=== PATIENT | female | born 1935 | race Caucasian/White ===

== ENCOUNTER 2017-01-02 21:34 | Emergency (ER) | payer OTHER, MEDICARE ==
[~2017-01-02] VITALS: Ht 157.5 cm; Wt 65.8 kg
--- NOTE | ~2017-01-02 | EKG ---
[address] [address] ELECTROCARDIOGRAM REPORT Name: AMALIA FIGUEROA [facility] [id number] Admission: 01/02/17 Attend Phys: Discharge: 01/02/17 Date of : 35 Report #: [id number] THIS REPORT FOR: //name// [facility] ED Test Date: 2017-01-02 Test Time: 21:50:29 Pat Name: AMALIA FIGUEROA Department: Room: Gender: F [employer] Teacher: tyler : 1935 Requested By: Chloe Gutierrez Order Number: [id number] MD: Cameron Levine Measurements Intervals [place] Rate: 61 P: 53 [place]: 205 QRS: 4 QRSD: 104 T: 22 QT: 459 QTc: 463 Interpretive Statements Sinus rhythm Low voltage, precordial leads Borderline T abnormalities, anterior leads Compared to ECG 06/06/2015 21:15:50 Low QRS voltage now present Sinus bradycardia no longer present T-wave abnormality still present Electronically Signed On 01-03-2017 20:21:12 CDT by Cameron Levine [email or web address] <ELECTRONICALLY SIGNED> By: Cameron Levine MD 01/03/172020 49 49 Cameron Levine MD /EPI
[~2017-01-02 21:34] MED LIST: ASPIRIN EC81 M1 PO; CALTRATE-600 W1 EACH PO; CLARITIN10 MG PO; GLUCOSAMINE CH1 EAC7 PO; IBUPROFEN 200200 M1 PO; LEVOTHROID PO; LIPITOR40 MG PO; LISINOPRIL-HCT1 EAC1 PO; MULTIVITAMINS PO; NASONEX17 GM NS; NEXIUM20 M1 PO; NEXIUM40 MG PO; PREMARIN1.25 MG PO; PRILOSEC 20 MG20 MG PO; PROTONIX40 M4 PO
[2017-01-02] MEDS ORDERED: PRINIVIL20 MG PO (21:53)
[2017-01-02 22:13] LABS: ABSOLUTE NEUTROPHILS 3.7 thou/uL (1.4-8.2); BASOPHILS 0.5 % (0.0-2.0); EOSINOPHILS 3.2 % (0.0-3.0); HEMATOCRIT 37.8 % (37.0-47.0); HEMOGLOBIN 12.9 gm/dL (12.0-15.0); LYMPHOCYTES 16.1 % (24.0-44.0); MCH 31.7 pg (26.0-34.0); MCHC 34.2 g/dL (28.0-37.0); MCV 92.7 fL (80.0-100.0); MONOCYTES 10.9 % (1.0-8.0); PLATELET COUNT 222 thou/uL (150-400); POLYS 69.3 % (36.0-66.0); RBC 4.08 mil/uL (4.20-5.00); RDW 13.4 % (10.5-14.5); WBC 5.3 thou/uL (4.0-11.0)
[2017-01-02 22:20] LABS: ANION GAP 14 mmol/L (7-16); BUN 18 mg/dL (7-18); CALCIUM 8.2 mg/dL (8.5-10.1); CHLORIDE 106 mmol/L (98-107); CO2 21 mmol/L (21-32); CREATININE 0.8 mg/dL (0.6-1.0); GLUCOSE 80 mg/dL (74-106); POTASSIUM 3.1 mmol/L (3.5-5.1); SODIUM 141 mmol/L (136-145)
[2017-01-02 22:25] LABS: MANUAL DIFF NO
[2017-01-02 22:28] LABS: TROPONIN-I < 0.04 ng/mL (<0.04-0.07)
[2017-01-02 23:25] VITALS: BP 114/58
== END 2017-01-02 23:27 | disposition home or self-care (01) ==
LOC: ER 21:34
PROVIDERS: Emergency Medicine
DX: E87.6 Hypokalemia (principal); R55 Syncope and collapse; I10 Essential (primary) hypertension; E78.00 Pure hypercholesterolemia, unspecified; M19.90 Unspecified osteoarthritis, unspecified site; Z86.73 Personal history of transient ischemic attack (TIA), and cerebral infarction without residual deficits; Z90.710 Acquired absence of both cervix and uterus; Z88.5 Allergy status to narcotic agent

== ENCOUNTER → 2020-01-24 | Outpatient (CLI) | payer OTHER, MEDICARE ==
[~2020-01-24] MED LIST changes: +PRINIVIL20 MG PO
== END ==
LOC: SJCVCIMAG 07:48
PROVIDERS: ATTEND Nuclear Medicine Nuclear Cardiology
DX: I65.23 Occlusion and stenosis of bilateral carotid arteries (principal); I73.9 Peripheral vascular disease, unspecified; I70.0 Atherosclerosis of aorta; E78.00 Pure hypercholesterolemia, unspecified; Z95.828 Presence of other vascular implants and grafts; Z87.891 Personal history of nicotine dependence

== ENCOUNTER → 2020-01-25 | Outpatient (CLI) | payer OTHER, MEDICARE | LOC: SJCVC 09:51 | PROVIDERS: ATTEND Nuclear Medicine Nuclear Cardiology | DX: I73.9 Peripheral vascular disease, unspecified (principal); I10 Essential (primary) hypertension; E78.00 Pure hypercholesterolemia, unspecified; I77.1 Stricture of artery; Z86.73 Personal history of transient ischemic attack (TIA), and cerebral infarction without residual deficits; Z87.891 Personal history of nicotine dependence ==

== ENCOUNTER → 2021-01-28 | Outpatient (CLI) | payer OTHER, MEDICARE | LOC: SJCVCIMAG 07:36 | PROVIDERS: ATTEND Nuclear Medicine Nuclear Cardiology | DX: I65.23 Occlusion and stenosis of bilateral carotid arteries (principal); I73.9 Peripheral vascular disease, unspecified; I77.9 Disorder of arteries and arterioles, unspecified; I10 Essential (primary) hypertension; E78.00 Pure hypercholesterolemia, unspecified; H33.20 Serous retinal detachment, unspecified eye; I25.10 Atherosclerotic heart disease of native coronary artery without angina pectoris; M79.661 Pain in right lower leg; M79.662 Pain in left lower leg; Z86.73 Personal history of transient ischemic attack (TIA), and cerebral infarction without residual deficits; Z87.891 Personal history of nicotine dependence; Z79.82 Long term (current) use of aspirin; Z79.899 Other long term (current) drug therapy; Z95.820 Peripheral vascular angioplasty status with implants and grafts; Z88.5 Allergy status to narcotic agent; Z88.1 Allergy status to other antibiotic agents; Z88.8 Allergy status to other drugs, medicaments and biological substances ==